=== PATIENT | female | born 1985 | race Caucasian/White ===

== ENCOUNTER 2020-06-06 04:30 | Inpatient (IN) | payer BC ==
[2020-06-06] MEDS ORDERED: DEXTROSE 5%-LACTATED RINGERS 1,000 ML IV SCH ×2 (05:15→10:15)
[2020-06-06] MEDS ORDERED: AMPICILLIN SODIUM 2 GM VIAL ONE (05:47)
[2020-06-06] MEDS ORDERED: AMPICILLIN SODIUM 2 GM VIAL IVPB ONE (06:00)
[2020-06-06 06:25] VITALS: BMI 24.1
[2020-06-06] MEDS ORDERED: OXYTOCIN 30 UNITS in 0.9% NS 30 UNIT/500 ML INFUS.BAG IVPB SCH (06:30)
[2020-06-06 06:50] LABS: BASO % 0.8 % (0-2.0); EOS % 0.8 % (0-4.5); HEMATOCRIT 32.6 % (32.4-45.2); HEMOGLOBIN 11.1 GM/dL (10.7-15.3); LYMPH % 15.8 % (8-40); MCH 30.5 pg (25.7-33.7); MCHC 34.1 g/dl (32.0-36.0); MEAN CELL VOLUME 89.4 fl (80-96); MEAN PLT VOLUME 8.6 fl (7.5-11.1); MONO % 6.1 % (3.8-10.2); NEUT % 76.5 % (42.8-82.8); PLATELET COUNT 329 K/MM3 (134-434); RBC 3.65 M/mm3 (3.60-5.2); RDW 13.4 % (11.6-15.6); WHITE BLOOD COUNT 12.4 K/mm3 (4.0-10.0)
[2020-06-06 06:53] LABS: INR 0.88 (0.83-1.09); PROTHROMBIN TIME (PATIENT) 10.7 SEC (9.7-13.0)
[2020-06-06 06:56] LABS: ACTIVATED PTT 23.8 SECONDS (25.2-36.5)
[2020-06-06 06:59] LABS: BLOOD UREA NITROGEN 5.1 mg/dL (7-18); CALCIUM 8.8 mg/dL (8.5-10.1)
[2020-06-06 07:03] LABS: CREATININE 0.6 mg/dL (0.55-1.3)
[2020-06-06] MEDS ORDERED: BETAMET ACET/BETAMET NA PH 30 MG/5 ML VIAL IM ONE (08:00)
[2020-06-06] MEDS ORDERED: BETAMET ACET/BETAMET NA PH 30 MG/5 ML VIAL ONE (08:01)
[2020-06-06] MEDS ORDERED: OXYTOCIN 30 UNITS in 0.9% NS 30 UNIT/500 ML INFUS.BAG IVPB ONE (08:01)
[2020-06-06] MEDS ORDERED: AMPICILLIN SODIUM 1 GM VIAL ONE ×3 (09:47→17:29)
[2020-06-06] MEDS: AMPICILLIN SODIUM 1 GM VIAL IVPB SCH ×3 (09:57→17:40)
[2020-06-06 11:44] LABS: HIV INTERPRETATION NEGATIVE (NEGATIVE)
[2020-06-06] MEDS ORDERED: morphine SULFATE/PF 0.5 MG/ML (2cc Syringe - QUVA) ONE (20:27)
[2020-06-06] MEDS ORDERED: ONDANSETRON 4 MG/2 ML VIAL ONE (20:28)
[2020-06-06] MEDS ORDERED: OXYTOCIN 10 UNITS/ML VIAL ONE (20:28)
[2020-06-06] MEDS ORDERED: KETOROLAC TROMETHAMINE 30 MG/1 ML VIAL ONE (20:28)
[2020-06-06] MEDS ORDERED: ceFAZolin SODIUM 1 GM VIAL ONE (20:28)
[2020-06-06] MEDS ORDERED: SODIUM CHLORIDE 0.9% P/F 10 ML VIAL IJ ONE (20:29)
[2020-06-06] MEDS ORDERED: morphine SULFATE/PF 0.5 MG/ML (2cc Syringe - QUVA) EP ONE (20:39)
[2020-06-06] MEDS ORDERED: IBUPROFEN 800 MG/8 ML IJ IVPB PRN (21:12)
[2020-06-06] MEDS ORDERED: SENNOSIDES/DOCUSATE COMBO (SENNA PLUS) TABLET (UD) PO PRN (21:12)
[2020-06-06] MEDS ORDERED: ACETAMINOPHEN 1000 MG/100 ML VIAL (NON FORMULARY) IVPB PRN (21:12)
[2020-06-06] MEDS ORDERED: ONDANSETRON 4 MG/2 ML VIAL IVPB PRN (21:12)
[2020-06-06] MEDS ORDERED: OXYTOCIN 20 UNITS in 0.9% NS 20 UNIT/1,000 ML INFUS.BAG IV SCH (21:15)
[2020-06-06] MEDS ORDERED: EPINEPHrine 1:10,000 (P-F SYR) 1 MG/10 ML DISP.SYRIN ONE (21:24)
[2020-06-06] MEDS ORDERED: ePHEDrine SULFATE 50 MG/1 ML AMPULE ONE (21:24)
[2020-06-06] MEDS ORDERED: ONDANSETRON 4 MG/2 ML VIAL IVPUSH PRN (21:42)
[2020-06-06] MEDS ORDERED: OXYTOCIN 20 UNITS in 0.9% NS 20 UNIT/1,000 ML INFUS.BAG IV ONE (23:25)
[2020-06-07] MEDS: AMPICILLIN SODIUM 1 GM VIAL IVPB SCH (00:54)
[2020-06-07] MEDS: CEFAZOLIN 2 GM/D5W 2 GM/50 ML ML IVPB SCH ×2 (01:15→10:16)
[2020-06-07] MEDS: FLUoxetine HCL 20 MG CAPSULE PO SCH (09:12)
[2020-06-07 11:16] LABS: BASO % 0.1 % (0-2.0); EOS % 0.1 % (0-4.5); HEMATOCRIT 32.1 % (32.4-45.2); HEMOGLOBIN 10.3 GM/dL (10.7-15.3); MCH 29.2 pg (25.7-33.7); MEAN CELL VOLUME 91.2 fl (80-96); MEAN PLT VOLUME 8.7 fl (7.5-11.1); MONO % 1.7 % (3.8-10.2); NEUT % 94.1 % (42.8-82.8); PLATELET COUNT 284 K/MM3 (134-434); RBC 3.52 M/mm3 (3.60-5.2); RDW 13.6 % (11.6-15.6); WHITE BLOOD COUNT 18.5 K/mm3 (4.0-10.0)
[2020-06-07 12:53] LABS: ANISOCYTOSIS 1+; MACROCYTOSIS 1+; PLATELET ESTIMATE NORMAL
[2020-06-07] MEDS: oxyCODONE HCL 5 MG TABLET PO PRN ×2 (14:51→22:02)
[2020-06-07] MEDS: IBUPROFEN 600 MG TABLET (FP) PO PRN ×2 (14:52→22:03)
[2020-06-07] MEDS: SIMETHICONE 80 MG TAB.CHEW (FP) PO PRN ×2 (14:52→22:03)
[2020-06-07] MEDS: ACETAMINOPHEN 325 MG TABLET (FP) PO PRN (17:25)
[2020-06-07] MEDS ORDERED: BISACODYL 10 MG SUPP.RECT RC PRN (21:12)
[2020-06-08] MEDS: ACETAMINOPHEN 325 MG TABLET (FP) PO PRN ×2 (00:32→06:23)
[2020-06-08] MEDS: SIMETHICONE 80 MG TAB.CHEW (FP) PO PRN (06:23)
[2020-06-08] MEDS: oxyCODONE HCL 5 MG TABLET PO PRN (06:23)
[2020-06-08] MEDS: FLUoxetine HCL 20 MG CAPSULE PO SCH ×2 (08:32→13:22)
[2020-06-08] MEDS: IBUPROFEN 600 MG TABLET (FP) PO PRN (08:33)
[2020-06-08 13:28] VITALS: BP 100/64; PULSE 82; TEMP 98.4
[2020-06-11 11:20] LABS: POC NITRAZINE POS
== END 2020-06-08 12:15 | disposition home or self-care (01) | DRG 788 ==
LOC: JLDR 04:30 → J3W 23:52
PROVIDERS: ADMIT Specialist; ATTEND Specialist
PROC: 10D00Z1 Extraction of Products of Conception, Low, Open Approach (ICD-10-PCS; principal; 2020-06-06)
DX: O42.013 Preterm premature rupture of membranes, onset of labor within 24 hours of rupture, third trimester (principal); O62.0 Primary inadequate contractions; O26.813 Pregnancy related exhaustion and fatigue, third trimester; N85.8 Other specified noninflammatory disorders of uterus; Z3A.35 35 weeks gestation of pregnancy; Z37.0 Single live birth
CPT/HCPCS: 36415; 80048; 83986-QW; 85025; 85610; 85730; 86780; 86850; 86900; 86901; 87389; 88307-TC; 96372; C9803; U0003; U0005

== ENCOUNTER 2023-07-19 08:49 | Emergency (ER) | payer BC ==
[2023-07-19 08:58] VITALS: BMI 18.3
[2023-07-19] MEDS: SODIUM CHLORIDE 0.9% 500 ML INFUS.BAG IV ONE (10:38)
[2023-07-19 10:44] LABS: BASO % 0.8 % (0-2.0); EOS % 0.6 % (0-4.5); HEMOGLOBIN 13.2 GM/dL (10.7-15.3); LYMPH % 30.3 % (8-40); MCH 31.2 pg (25.7-33.7); MCHC 33.8 g/dl (32.0-36.0); MEAN CELL VOLUME 92.3 fl (80-96); MEAN PLT VOLUME 7.6 fl (7.5-11.1); MONO % 5.5 % (3.8-10.2); NEUT % 62.8 % (42.8-82.8); PLATELET COUNT 263 10^3/uL (134-434); RBC 4.22 M/mm3 (3.60-5.2); RDW 12.8 % (11.6-15.6); WHITE BLOOD COUNT 4.4 K/mm3 (4.0-10.0)
[2023-07-19 10:46] LABS: URINE APPEARANCE CLOUDY; URINE BILIRUBIN NEGATIVE (NEGATIVE); URINE COLOR YELLOW; URINE GLUCOSE (UA) NEGATIVE (NEGATIVE); URINE KETONE NEGATIVE (NEGATIVE); URINE LEUK ESTERASE NEGATIVE (NEGATIVE); URINE NITRITE NEGATIVE (NEGATIVE); URINE PROTEIN NEGATIVE (NEGATIVE); URINE UROBILINOGEN 0.2 mg/dL (0.2-1.0)
[2023-07-19 11:03] LABS: POTASSIUM 4.4 mmol/L (3.5-5.1)
[2023-07-19 11:05] LABS: CALCIUM 9.3 mg/dL (8.5-10.1)
[2023-07-19 11:06] LABS: ALBUMIN 3.8 g/dl (3.4-5.0); BLOOD UREA NITROGEN 8.6 mg/dL (7-18); MAGNESIUM 2.3 mg/dL (1.8-2.4)
[2023-07-19 11:09] LABS: CREATININE 0.7 mg/dL (0.55-1.3); PHOSPHOROUS 3.4 mg/dL (2.5-4.9)
[2023-07-19 11:10] LABS: TOT PROT 6.9 g/dl (6.4-8.2)
[2023-07-19 11:11] LABS: BILIRUBIN,TOTAL 0.2 mg/dL (0.2-1)
[2023-07-19 11:57] VITALS: BP 104/73; PULSE 90; RESP 21; TEMP 97.7
== END 2023-07-19 12:17 | disposition home or self-care (01) ==
LOC: JER 08:49
DX: R53.83 Other fatigue (principal); F32.A Depression, unspecified
CPT/HCPCS: 36415; 80053; 81003; 83735; 84100; 84439; 84443; 84703; 85025; 87086; 93005; 93010; 99284-25